=== PATIENT | male | born 1990 | race Two or more races ===

== ENCOUNTER 2018-04-25 21:33 | Emergency (ER) | payer OTHER ==
[~2018-04-25] VITALS: Ht 185.4 cm; Wt 79.4 kg
[2018-04-25 22:30] VITALS: BP 132/68
[2018-04-25] MEDS ORDERED: TDAP [DIPH/PERTUSSIS/TET] 0.5 ML VIAL IM ONE (22:43)
[2018-04-25] MEDS: TDAP [DIPH/PERTUSSIS/TET] 0.5 ML VIAL IM ONE (22:48)
== END 2018-04-25 22:51 | disposition home or self-care (01) ==
LOC: ER 21:41
DX: S60.511A Abrasion of right hand, initial encounter (principal); S80.211A Abrasion, right knee, initial encounter; V00.141A Fall from scooter (nonmotorized), initial encounter; Y93.I9 Activity, other involving external motion; Y92.89 Other specified places as the place of occurrence of the external cause; Y99.8 Other external cause status
CPT/HCPCS: 90715; A4606; A6402; Z7610

== ENCOUNTER → 2020-11-26 | Emergency (ER) | payer OTHER ==
[~2020-11-26] VITALS: Ht 185.4 cm; Wt 104.3 kg
[~2020-11-26] MED LIST: CEFTRIAXONE 500 MG VIAL IM ONE; CEFTRIAXONE 500 MG VIAL ONE; DOXY100C41 PO; DOXYCYCLINE HYCLATE (100 MG) 100 MG TABLET ONE; DOXYCYCLINE HYCLATE (100 MG) 100 MG TABLET PO SCH; LIDOCAINE /MPF 1% VIAL 5 ML VIAL ONE
--- NOTE | 2020-11-26 08:23 | NUR ---
Patient came in to the er c/o Dysuria with discharge since yesterday. On room air, breathing evenly and unlabored. Kept comfortable, will continue to monitor accordingly.
--- NOTE | 2020-11-26 08:24 | NUR ---
urine collected and sent to lab
[2020-11-26 08:49] VITALS: BP 128/71
--- NOTE | 2020-11-26 08:49 | NUR ---
PT. VERBALIZED UNDERSTANDING OF AFTERCARE INSTRUCTIONS.Patient discharged to home in stable condition. Written and verbal after care instructions given. Patient verbalizes understanding of instruction.
[2020-11-26 09:01] LABS: BILIRUBIN,URINE NEGATIVE (NEGATIVE); COLOR,URINE YELLOW (YELLOW); LEUKOCYTE ESTERASE ,URINE SMALL (NEGATIVE); NITRITE, URINE NEGATIVE (NEGATIVE); PROTEIN,URINE NEGATIVE (NEGATIVE); UGLUCOSE NEGATIVE (NEGATIVE); UROBILINOGEN,URINE 0.2 EU/dL (0.2)
[2020-11-26 09:15] LABS: BACTERIA,URINE Few /HPF (None Seen); RBC,URINE 0-2 /HPF (0-2); SQUAMOUS EPITHELIAL CELL,UR Rare /HPF (None Seen); WBC,URINE 21-50 /HPF (0-3)
== END | disposition home or self-care (01) ==
LOC: ER 08:13
DX: N34.2 Other urethritis (principal)
CPT/HCPCS: 81001; 87086; 87491; 87591; 96372; 99283; J0696; J3490

== ENCOUNTER 2021-08-07 17:42 | Emergency (ER) | payer OTHER ==
[~2021-08-07] VITALS: Ht 185.4 cm; Wt 101.6 kg
[~2021-08-07 17:42] MED LIST changes: -CEFTRIAXONE 500 MG VIAL IM ONE; -CEFTRIAXONE 500 MG VIAL ONE; +DOXY-326 PO; -DOXY100C41 PO; -DOXYCYCLINE HYCLATE (100 MG) 100 MG TABLET ONE; -DOXYCYCLINE HYCLATE (100 MG) 100 MG TABLET PO SCH; -LIDOCAINE /MPF 1% VIAL 5 ML VIAL ONE
--- NOTE | 2021-08-07 18:14 | NUR ---
BIB SELF C/O RLQ PAIN X 2 DAYS. DENIES N/V, DIARRHEA. DENIES PAIN W COUGH. AAOX4, BREATHING EVEN AND UNLABORED. PULSES 2+ BILATERALLY. AWAITING MD FOR EVAL
--- NOTE | 2021-08-07 18:45 | NUR ---
MANDA PINEDA AT BEDSIDE
--- NOTE | 2021-08-07 18:56 | NUR ---
URINE SAMPLE OBTAINED AND SENT TO LAB
[2021-08-07] MEDS ORDERED: IBUP-1955 PO (19:07)
[2021-08-07] MEDS ORDERED: CLIN300C12 PO (19:07)
[2021-08-07] MEDS ORDERED: CLINDAMYCIN HCL 150 MG CAPSULE ONE (19:14)
--- NOTE | 2021-08-07 19:26 | NUR ---
Patient discharged to home in stable condition. Written and verbal after care instructions given. Patient verbalizes understanding of instruction.
[2021-08-07 19:27] VITALS: BP 131/76
[2021-08-07] MEDS ORDERED: CLINDAMYCIN HCL 150 MG CAPSULE PO ONE (19:30)
[2021-08-07 19:43] LABS: BILIRUBIN,URINE NEGATIVE (NEGATIVE); COLOR,URINE YELLOW (YELLOW); LEUKOCYTE ESTERASE ,URINE NEGATIVE (NEGATIVE); NITRITE, URINE NEGATIVE (NEGATIVE); PROTEIN,URINE NEGATIVE (NEGATIVE); UGLUCOSE NEGATIVE (NEGATIVE); UROBILINOGEN,URINE 0.2 EU/dL (0.2)
== END 2021-08-07 19:27 | disposition home or self-care (01) ==
LOC: ER 17:44
DX: I88.9 Nonspecific lymphadenitis, unspecified (principal); L05.91 Pilonidal cyst without abscess; I10 Essential (primary) hypertension

== ENCOUNTER 2021-09-30 11:01 | Emergency (ER) | payer OTHER ==
[~2021-09-30] VITALS: Ht 185.4 cm; Wt 104.3 kg
[~2021-09-30 11:01] MED LIST changes: +CLIN300C12 PO; +IBUP-1955 PO
--- NOTE | 2021-09-30 11:24 | NUR ---
BIBS FOR C/O AUGUST HAND AND AUGUST ELBOW RASH X4 DAYS. DENIES ITCHING, PAIN. AMBULATORY NOT IN DISTRESS
[2021-09-30 11:55] LABS: LYMPHOCYTES # (AUTO) 2.8 K/uL (0.8-4.8); LYMPHOCYTES % (AUTO) 30.9 % (20.0-44.0); MONOCYTES # (AUTO) 0.9 K/uL (0.1-1.30); RED BLOOD CELL COUNT(AUTO) 4.76 MIL/uL (4.5-6.0)
[2021-09-30 11:59] LABS: BASOPHILS # (AUTO) 0.1 K/uL (0.0-0.2); BASOPHILS % (AUTO) 0.6 % (0.0-2.0); EOSINOPHILS % (AUTO) 3.4 % (0.0-6.0); HEMATOCRIT 43 % (39-51); HEMOGLOBIN 14.7 g/dL (13.5-17.5); MEAN CORPUSCULAR HGB CONC 34 g/dl (31.0-36.0); MEAN CORPUSCULAR VOLUME 90 fL (80-96); MONOCYTES % (AUTO) 9.8 % (2.0-12.0); NEUTROPHILS # (AUTO) 5.1 K/uL (1.8-8.9); NEUTROPHILS % (AUTO) 55.3 % (43.0-81.0); PLATELET COUNT (AUTO) 68 K/uL (150-450); WHITE BLOOD COUNT (AUTO) 9.2 K/uL (4.3-11.0)
[2021-09-30] MEDS ORDERED: PRED50TA PO (12:27)
[2021-09-30 12:28] LABS: ALBUMIN 4.1 g/dL (3.4-5.0); BILIRUBIN,DIRECT 0.1 mg/dL (0.0-0.2); BILIRUBIN,TOTAL 0.7 mg/dL (0.2-1.0); CALCIUM, SERUM 9.1 mg/dL (8.5-10.1); CREATININE 1.1 mg/dL (0.6-1.3); POTASSIUM 4.2 mmol/L (3.5-5.1); TOTAL PROTEIN, SERUM 7.8 g/dL (6.4-8.2)
--- NOTE | 2021-09-30 12:43 | NUR ---
Patient discharged to home in stable condition. Written and verbal after care instructions given. Patient verbalizes understanding of instruction.
--- NOTE | 2021-09-30 12:44 | NUR ---
Jag sandy in ED - 09/30/21 at 1244 by LOVE Patient discharged to home in stable condition. Written and verbal after care instructions given. Patient verbalizes understanding of instruction.
[2021-09-30 12:45] VITALS: BP 130/83
== END 2021-09-30 12:45 | disposition home or self-care (01) ==
LOC: ER 11:04
DX: D69.3 Immune thrombocytopenic purpura (principal); I10 Essential (primary) hypertension; D75.A Glucose-6-phosphate dehydrogenase (G6PD) deficiency without anemia; Z88.6 Allergy status to analgesic agent; Z79.52 Long term (current) use of systemic steroids; Z79.1 Long term (current) use of non-steroidal anti-inflammatories (NSAID); Z79.899 Other long term (current) drug therapy
CPT/HCPCS: 36415; 80048-TC; 80076-TC; 85025-TC; 85730-TC

== ENCOUNTER 2022-11-13 10:43 | Emergency (ER) | payer OTHER ==
[~2022-11-13] VITALS: Ht 185.4 cm; Wt 90.7 kg
[~2022-11-13 10:43] MED LIST changes: +PRED50TA PO
[2022-11-13] MEDS ORDERED: DOXY100C2 PO (11:12)
[2022-11-13] MEDS ORDERED: CEFTRIAXONE 500 MG VIAL ONE (11:16)
[2022-11-13] MEDS ORDERED: DOXYCYCLINE HYCLATE (100 MG) 100 MG TABLET ONE (11:17)
[2022-11-13] MEDS ORDERED: LIDOCAINE 1% INJ 50 ML MDV IJ ONE (11:18)
[2022-11-13 11:29] VITALS: BP 114/76
[2022-11-13] MEDS ORDERED: CEFTRIAXONE 500 MG VIAL IM ONE (11:30)
[2022-11-13] MEDS ORDERED: DOXYCYCLINE HYCLATE (100 MG) 100 MG TABLET PO ONE (11:30)
== END 2022-11-13 11:33 | disposition home or self-care (01) ==
LOC: ER 10:50
DX: N34.2 Other urethritis (principal); I10 Essential (primary) hypertension; Z79.899 Other long term (current) drug therapy; Z88.1 Allergy status to other antibiotic agents
CPT/HCPCS: 99283; 96372; J3490; J0696